=== PATIENT | female | born 2000 | race Hispanic/Latino ===

== ENCOUNTER 2020-12-13 19:00 | Emergency (ER) | payer OTHER ==
[2020-12-13] MEDS ORDERED: ACETAMINOPHEN 325 MG TAB ONE (20:43)
[2020-12-13] MEDS ORDERED: CYCLOBENZAPRINE HCL 10 MG TABLET ONE (20:43)
[2020-12-13] MEDS ORDERED: IBUPROFEN 600 MG TABLET ONE (20:43)
== END 2020-12-13 20:52 | disposition home or self-care (01) ==
LOC: EDH 19:00
DX: M54.5 Low back pain (principal); M54.2 Cervicalgia; V49.9XXA Car occupant (driver) (passenger) injured in unspecified traffic accident, initial encounter; Y93.89 Activity, other specified; Y92.89 Other specified places as the place of occurrence of the external cause; Y99.8 Other external cause status